=== PATIENT | male | born 1945 | race Caucasian/White ===

== ENCOUNTER 2020-05-24 21:22 | Observation (INO) ==
[2020-05-24 23:42] LABS: Bilirubin,Urine Negative (Negative); Blood, Urine Negative (Negative); Glucose,Urine (UA) 50 mg/dL (Negative); Ketones,Urine Negative (Negative); Mucus,Urine Occasional /LPF (Occasional); Nitrite,Urine Negative (Negative); Protein,Urine 100 MG/DL; RBC,Urine 2 /HPF (0-4); Squamous Epithelial Cell,Urine Occasional /HPF (0-10); Urine Appearance CLEAR (Clear); Urine Color Amber (Yellow); Urine Specific Gravity 1.018 (1.001-1.035); WBC,Urine 1 /HPF (0-6)
[2020-05-24 23:44] LABS: Basophils # 0.1 10*3/uL (0.0-0.2); Basophils % 0.8 % (0.0-0.8); Eosinophils # 0.1 10*3/uL (0.0-0.87); Eosinophils % 0.9 % (0.00-10.9); Hematocrit 29.5 VOL% (42.0-52.0); Hemoglobin 9.2 GM/DL (14.0-18.0); Immature Granulocytes % 0.6 %; Lymphocytes # 3.2 10*3/uL (1.4-4.0); Lymphocytes % 20.5 % (21.2-54.2); Mean Corpuscular HGB Conc 31.2 GM/DL (32-36); Mean Corpuscular Volume 70.2 FL (87-102); Monocytes % 8.9 % (1.7-12.7); NRBC # 6.69 10*3/uL; Neutrophils % 68.3 % (38.7-73.9); Platelet Count 372 T/CUMM (130-400); White Blood Count 15.7 T/CUMM (4-12)
[2020-05-24 23:56] LABS: INR 1.6; PT Patient Result 16.7 SECS (9.8-11.9); Partial Thromboplastin Time 29.4 SECS (23.9-33.8)
[2020-05-25 00:04] LABS: Albumin 3.3 G/DL (3.4-5.0); Bilirubin,Total 2.5 MG/DL (0.2-1.0); Calcium 8.6 MG/DL (8.5-10.1); Osmolality,Calculated 277.8 MOS/KG (273-304); Potassium 4.1 MMOL/L (3.5-5.1); Total Protein 6.5 G/DL (6.4-8.3)
[2020-05-25 02:25] LABS: Anisocytosis 3+; Eosinophils 1 % (0-10); Lymphocytes 22 % (20-55); Nucleated Red Blood Cells 64 (0-5); Poikilocytosis 3+; Segmented Neutrophils 73 % (50-85); Total Cells Counted 100
[2020-05-25 02:26] LABS: Atypical Lymphocytes Few; Hypochromasia Slight; Macrocytosis 1+; Microcytosis 1+; Ovalocytes Few
[2020-05-25 02:27] LABS: Acanthocytes 1+; Burr Cells 1+; Howell-Jolly Bodies Few; Polychromasia Few; Schistocytes 1+; Spherocytes 1+
[2020-05-25 02:28] LABS: Target Cells 1+; Tear Drop Cells 1+
[2020-05-25 02:31] LABS: Basophilic Stippling Slight
[2020-05-25] MEDS ORDERED: GLUCAGON 1 MG VIAL IM PRN (03:31)
[2020-05-25] MEDS ORDERED: DEXTROSE 50% 25 GM/50 ML VIAL IV PRN (03:31)
[2020-05-25] MEDS ORDERED: ACETAMINOPHEN 325 MG TABLET PO PRN (03:37)
[2020-05-25] MEDS ORDERED: BISACODYL 5 MG TABLET PO PRN (03:37)
[2020-05-25] MEDS ORDERED: ONDANSETRON 4 MG/2 ML VIAL IV PRN (03:37)
[2020-05-25 06:28] LABS: Basophils # 0.1 10*3/uL (0.0-0.2); Basophils % 0.7 % (0.0-0.8); Eosinophils # 0.2 10*3/uL (0.0-0.87); Eosinophils % 1.8 % (0.00-10.9); Hematocrit 28.4 VOL% (42.0-52.0); Hemoglobin 8.9 GM/DL (14.0-18.0); Immature Granulocytes % 0.6 %; Immature Granulocytes Absolute 0.08 #; Lymphocytes % 23.9 % (21.2-54.2); Mean Corpuscular HGB Conc 31.3 GM/DL (32-36); Mean Corpuscular Volume 70.6 FL (87-102); Monocytes % 9.7 % (1.7-12.7); NRBC # 6.09 10*3/uL; Neutrophils % 63.3 % (38.7-73.9); Platelet Count 435 T/CUMM (130-400); Red Blood Count 4.02 MC/CUMM (3.8-5.5); Red Cell Distribution Width 26.3 % (9.3-17.3); White Blood Count 12.6 T/CUMM (4-12)
[2020-05-25 06:54] LABS: % Iron Saturation 14.8 % (18-50); Ferritin 138.3 ng/ml (26-388)
[2020-05-25 07:01] LABS: Albumin 3.1 G/DL (3.4-5.0); Bilirubin,Total 1.8 MG/DL (0.2-1.0); Calcium 8.6 MG/DL (8.5-10.1); Osmolality,Calculated 273.8 MOS/KG (273-304); Potassium 3.7 MMOL/L (3.5-5.1); Risk Ratio 2.66; Thyroid Stimulating Hormone 1.18 uIU/ml (0.358-3.74); Total Protein 6.6 G/DL (6.4-8.3); VLDL CHOLESTEROL 16.6 MG/DL
[2020-05-25 07:57] LABS: Band Neutrophils 3 % (0-10); Eosinophils 5 % (0-10); Lymphocytes 25 % (20-55); Nucleated Red Blood Cells 87 (0-5); Platelet Estimate Normal; Segmented Neutrophils 61 % (50-85); Total Cells Counted 100
[2020-05-25 07:58] LABS: Anisocytosis 2+; Burr Cells 1+; Ovalocytes Few; Poikilocytosis 1+; Target Cells 2+
[2020-05-25 07:59] LABS: Hypochromasia Slight; Polychromasia 1+
[2020-05-25] MEDS: INSULIN LISPRO 100 UNIT/ML SUBCUT SCH ×4 (08:36→22:35)
[2020-05-25] MEDS ORDERED: INSULIN GLARGINE SUBCUT SCH (09:00)
[2020-05-25] MEDS: ATORVASTATIN 20 MG TABLET PO SCH (09:49)
[2020-05-25] MEDS: lisinopriL 20 MG TABLET PO SCH (09:49)
[2020-05-25] MEDS: FOLIC ACID 1 MG TABLET PO SCH (09:49)
[2020-05-25] MEDS: MAGNESIUM OXIDE 400 MG TABLET PO SCH (09:49)
[2020-05-25] MEDS: METOPROLOL TARTRATE 25 MG TABLET PO SCH ×2 (09:50→22:34)
[2020-05-25] MEDS: WARFARIN 5 MG TABLET PO SCH (16:54)
[2020-05-26] MEDS: hydrALAZINE 20 MG/1 ML VIAL IV PRN (02:32)
[2020-05-26 05:57] LABS: Basophils # 0.1 10*3/uL (0.0-0.2); Eosinophils # 0.3 10*3/uL (0.0-0.87); Eosinophils % 2.3 % (0.00-10.9); Hematocrit 28.7 VOL% (42.0-52.0); Immature Granulocytes % 0.7 %; Immature Granulocytes Absolute 0.09 #; Lymphocytes # 2.3 10*3/uL (1.4-4.0); Lymphocytes % 18.7 % (21.2-54.2); Mean Corpuscular HGB Conc 31.4 GM/DL (32-36); Mean Corpuscular Volume 70.3 FL (87-102); Monocytes % 10.7 % (1.7-12.7); NRBC # 5.26 10*3/uL; Neutrophils % 66.6 % (38.7-73.9); Platelet Count 362 T/CUMM (130-400); Red Blood Count 4.08 MC/CUMM (3.8-5.5); Red Cell Distribution Width 27.1 % (9.3-17.3); White Blood Count 12.2 T/CUMM (4-12)
[2020-05-26 06:23] LABS: Albumin 3.2 G/DL (3.4-5.0); Bilirubin,Total 1.8 MG/DL (0.2-1.0); Calcium 8.3 MG/DL (8.5-10.1); Osmolality,Calculated 279.4 MOS/KG (273-304); Potassium 3.6 MMOL/L (3.5-5.1); Total Protein 6.7 G/DL (6.4-8.3)
[2020-05-26 07:07] LABS: Anisocytosis 3+; Basophilic Stippling 1+; Burr Cells 1+; Platelet Estimate Normal; Poikilocytosis 1+; Target Cells 1+
[2020-05-26 07:08] LABS: Giant Platelets Few; Ovalocytes Few; Tear Drop Cells Few
[2020-05-26] MEDS: INSULIN LISPRO 100 UNIT/ML SUBCUT SCH ×4 (07:35→21:33)
[2020-05-26] MEDS ORDERED: NITROGLYCERIN SL 0.4 MG TABLET SL ONE (07:53)
[2020-05-26] MEDS: lisinopriL 20 MG TABLET PO SCH (09:39)
[2020-05-26] MEDS: FOLIC ACID 1 MG TABLET PO SCH (09:39)
[2020-05-26] MEDS: METOPROLOL TARTRATE 25 MG TABLET PO SCH ×2 (09:39→21:21)
[2020-05-26] MEDS: MAGNESIUM OXIDE 400 MG TABLET PO SCH (09:39)
[2020-05-26] MEDS: ATORVASTATIN 20 MG TABLET PO SCH (09:40)
[2020-05-26] MEDS ORDERED: NITROGLYCERIN SL 0.4 MG TABLET SL PRN (12:51)
[2020-05-26] MEDS: WARFARIN 5 MG TABLET PO SCH (16:34)
[2020-05-27 05:09] LABS: Basophils # 0.2 10*3/uL (0.0-0.2); Basophils % 1.6 % (0.0-0.8); Eosinophils # 0.3 10*3/uL (0.0-0.87); Eosinophils % 3.1 % (0.00-10.9); Hematocrit 28.7 VOL% (42.0-52.0); Hemoglobin 8.8 GM/DL (14.0-18.0); Immature Granulocytes % 0.5 %; Immature Granulocytes Absolute 0.05 #; Lymphocytes # 2.4 10*3/uL (1.4-4.0); Lymphocytes % 23.8 % (21.2-54.2); Mean Corpuscular HGB Conc 30.7 GM/DL (32-36); Mean Corpuscular Volume 70.5 FL (87-102); Monocytes % 13.8 % (1.7-12.7); NRBC # 5.21 10*3/uL; Neutrophils % 57.2 % (38.7-73.9); Platelet Count 348 T/CUMM (130-400); Red Blood Count 4.07 MC/CUMM (3.8-5.5); Red Cell Distribution Width 27.1 % (9.3-17.3); White Blood Count 9.9 T/CUMM (4-12)
[2020-05-27 05:16] LABS: PT Patient Result 20.3 SECS (9.8-11.9)
[2020-05-27 05:28] LABS: Eosinophils 1 % (0-10); Hypochromasia 1+; Lymphocytes 24 % (20-55); Nucleated Red Blood Cells 73 (0-5); Platelet Estimate Adequate; Segmented Neutrophils 68 % (50-85); Target Cells Few; Total Cells Counted 100
[2020-05-27 05:29] LABS: Basophilic Stippling Slight; Macrocytosis Slight; Pappenheimer Bodies Slight; Polychromasia Slight
[2020-05-27 05:33] LABS: Calcium 8.3 MG/DL (8.5-10.1); Osmolality,Calculated 282.5 MOS/KG (273-304)
[2020-05-27 05:37] LABS: Albumin 3.1 G/DL (3.4-5.0); Bilirubin,Direct 0.45 MG/DL (0.0-0.20); Bilirubin,Total 2.4 MG/DL (0.2-1.0); Total Protein 6.8 G/DL (6.4-8.3)
[2020-05-27] MEDS: INSULIN LISPRO 100 UNIT/ML SUBCUT SCH ×4 (08:16→20:30)
[2020-05-27] MEDS: lisinopriL 20 MG TABLET PO SCH (11:01)
[2020-05-27] MEDS: METOPROLOL TARTRATE 25 MG TABLET PO SCH ×2 (11:01→20:33)
[2020-05-27] MEDS: ATORVASTATIN 20 MG TABLET PO SCH (11:02)
[2020-05-27] MEDS: FOLIC ACID 1 MG TABLET PO SCH (11:02)
[2020-05-27] MEDS: MAGNESIUM OXIDE 400 MG TABLET PO SCH (11:02)
[2020-05-27] MEDS: WARFARIN 5 MG TABLET PO SCH (16:39)
[2020-05-27] MEDS: hydrALAZINE 20 MG/1 ML VIAL IV PRN (16:40)
[2020-05-28 06:17] LABS: Basophils # 0.2 10*3/uL (0.0-0.2); Basophils % 1.7 % (0.0-0.8); Eosinophils # 0.3 10*3/uL (0.0-0.87); Eosinophils % 3.2 % (0.00-10.9); Hematocrit 30.5 VOL% (42.0-52.0); Hemoglobin 9.4 GM/DL (14.0-18.0); Immature Granulocytes % 0.3 %; Immature Granulocytes Absolute 0.03 #; Lymphocytes # 2.5 10*3/uL (1.4-4.0); Lymphocytes % 28.3 % (21.2-54.2); Mean Corpuscular HGB Conc 30.8 GM/DL (32-36); Mean Corpuscular Volume 71.4 FL (87-102); Monocytes % 13.6 % (1.7-12.7); NRBC # 3.29 10*3/uL; Neutrophils % 52.9 % (38.7-73.9); Platelet Count 361 T/CUMM (130-400); Red Blood Count 4.27 MC/CUMM (3.8-5.5); Red Cell Distribution Width 27.7 % (9.3-17.3); White Blood Count 8.8 T/CUMM (4-12)
[2020-05-28 06:37] LABS: Calcium 8.6 MG/DL (8.5-10.1); Potassium 4.4 MMOL/L (3.5-5.1)
[2020-05-28 06:44] LABS: Basophilic Stippling Slight; Eosinophils 4 % (0-10); Howell-Jolly Bodies Slight; Hypochromasia 1+; Lymphocytes 18 % (20-55); Nucleated Red Blood Cells 51 (0-5); Pappenheimer Bodies Few; Platelet Estimate Adequate; Segmented Neutrophils 68 % (50-85); Total Cells Counted 100
[2020-05-28 06:45] LABS: Macrocytosis Slight; Polychromasia Slight
[2020-05-28] MEDS: hydrALAZINE 20 MG/1 ML VIAL IV PRN (08:19)
[2020-05-28] MEDS: INSULIN LISPRO 100 UNIT/ML SUBCUT SCH ×4 (08:20→20:53)
[2020-05-28] MEDS: ATORVASTATIN 20 MG TABLET PO SCH (09:27)
[2020-05-28] MEDS: MAGNESIUM OXIDE 400 MG TABLET PO SCH (09:27)
[2020-05-28] MEDS: FOLIC ACID 1 MG TABLET PO SCH (09:27)
[2020-05-28] MEDS: METOPROLOL TARTRATE 25 MG TABLET PO SCH ×2 (09:27→20:53)
[2020-05-28] MEDS: lisinopriL 20 MG TABLET PO SCH (09:27)
[2020-05-28] MEDS: WARFARIN 5 MG TABLET PO SCH (16:02)
[2020-05-29 05:40] LABS: Basophils # 0.1 10*3/uL (0.0-0.2); Basophils % 1.5 % (0.0-0.8); Eosinophils # 0.3 10*3/uL (0.0-0.87); Eosinophils % 3.4 % (0.00-10.9); Hematocrit 27.2 VOL% (42.0-52.0); Hemoglobin 8.5 GM/DL (14.0-18.0); Immature Granulocytes % 0.4 %; Immature Granulocytes Absolute 0.03 #; Lymphocytes # 2.5 10*3/uL (1.4-4.0); Lymphocytes % 30.6 % (21.2-54.2); Mean Corpuscular HGB Conc 31.3 GM/DL (32-36); Mean Corpuscular Volume 70.3 FL (87-102); Monocytes % 14.7 % (1.7-12.7); Neutrophils % 49.4 % (38.7-73.9); Platelet Count 333 T/CUMM (130-400); Red Blood Count 3.87 MC/CUMM (3.8-5.5); Red Cell Distribution Width 27.2 % (9.3-17.3); White Blood Count 8.2 T/CUMM (4-12)
[2020-05-29 06:01] LABS: Calcium 8.3 MG/DL (8.5-10.1); Osmolality,Calculated 284.5 MOS/KG (273-304); Potassium 4.2 MMOL/L (3.5-5.1)
[2020-05-29 06:35] LABS: Eosinophils 3 % (0-10); Hypochromasia 1+; Lymphocytes 32 % (20-55); Nucleated Red Blood Cells 24 (0-5); Platelet Estimate Adequate; Segmented Neutrophils 53 % (50-85); Target Cells Few; Total Cells Counted 100
[2020-05-29 06:36] LABS: Howell-Jolly Bodies Slight; Pappenheimer Bodies Slight
[2020-05-29 06:37] LABS: Macrocytosis Slight
[2020-05-29] MEDS: INSULIN LISPRO 100 UNIT/ML SUBCUT SCH ×3 (07:58→16:51)
[2020-05-29] MEDS: METOPROLOL TARTRATE 25 MG TABLET PO SCH (09:26)
[2020-05-29] MEDS: FOLIC ACID 1 MG TABLET PO SCH (09:26)
[2020-05-29] MEDS: ATORVASTATIN 20 MG TABLET PO SCH (09:26)
[2020-05-29] MEDS: lisinopriL 20 MG TABLET PO SCH (09:27)
[2020-05-29] MEDS: MAGNESIUM OXIDE 400 MG TABLET PO SCH (09:27)
[2020-05-29] MEDS ORDERED: REGADENOSON 0.4 MG/5 ML SYRINGE IV ONE (13:23)
[2020-05-29 16:51] VITALS: BP 130/70
[2020-06-04 05:32] LABS: Hemoglobin A1 (Alkaline) 91.6 % (96.5-98.5); Hemoglobin A2 (Alkaline) 4.6 % (1.5-3.5); Hemoglobin F (Alkaline) 3.8 %
== END 2020-05-29 17:52 | disposition home or self-care (01) ==
LOC: N.EDINP 21:22 → N.ED 21:22 → SUATTDRO 05-25 01:48 → N.TELES 05-25 04:08
PROVIDERS: ADMIT Internal Medicine; ATTEND Internal Medicine

== ENCOUNTER 2021-01-22 08:29 | Observation (INO) ==
[2021-01-22 09:19] LABS: Basophils # 0.2 10*3/uL (0.0-0.2); Basophils % 1.5 % (0.0-0.8); Eosinophils # 0.3 10*3/uL (0.0-0.87); Hematocrit 29.5 VOL% (42.0-52.0); Hemoglobin 8.9 GM/DL (14.0-18.0); Immature Granulocytes % 0.5 %; Immature Granulocytes Absolute 0.07 #; Lymphocytes # 2.7 10*3/uL (1.4-4.0); Mean Corpuscular HGB Conc 30.2 GM/DL (32-36); Mean Corpuscular Volume 61.1 FL (87-102); Monocytes % 8.6 % (1.7-12.7); NRBC # 3.02 10*3/uL; Neutrophils % 69.4 % (38.7-73.9); Platelet Count 384 T/CUMM (130-400); Red Blood Count 4.83 MC/CUMM (3.8-5.5); White Blood Count 14.9 T/CUMM (4-12)
[2021-01-22 09:34] LABS: Albumin 3.7 G/DL (3.4-5.0); Bilirubin,Total 1.1 MG/DL (0.20-1.00); Calcium 9.1 MG/DL (8.5-10.1); Potassium 4.9 MMOL/L (3.5-5.1); Total Protein 7.3 G/DL (6.4-8.2)
[2021-01-22] MEDS ORDERED: ACETAMINOPHEN 325 MG TABLET PO PRN (10:19)
[2021-01-22] MEDS ORDERED: ONDANSETRON 4 MG/2 ML VIAL IV PRN (10:19)
[2021-01-22] MEDS ORDERED: GLUCAGON 1 MG VIAL IM PRN (10:19)
[2021-01-22] MEDS ORDERED: DEXTROSE 50% 25 GM/50 ML VIAL IV PRN (10:19)
[2021-01-22 10:32] LABS: Lymphocytes 28 % (20-55); Nucleated Red Blood Cells 1 (0-5); Segmented Neutrophils 60 % (50-85); Total Cells Counted 100
[2021-01-22 10:33] LABS: Anisocytosis 1+; Hypochromasia 1+
[2021-01-22 10:51] LABS: Platelet Estimate Adequate
[2021-01-22] MEDS: INSULIN REGULAR 100 UNIT/ML SUBCUT SCH ×3 (12:26→21:34)
[2021-01-22] MEDS: MAGNESIUM OXIDE 400 MG TABLET PO SCH (21:21)
[2021-01-22] MEDS: METOPROLOL TARTRATE 25 MG TABLET PO SCH (21:22)
[2021-01-22] MEDS: DOCUSATE SODIUM 100 MG CAPSULE PO SCH (21:23)
[2021-01-22] MEDS: MEMANTINE 10 MG TABLET PO SCH (21:23)
[2021-01-22] MEDS: APIXABAN 5 MG TABLET PO SCH (21:23)
[2021-01-23 05:07] LABS: Basophils # 0.2 10*3/uL (0.0-0.2); Basophils % 1.8 % (0.0-0.8); Eosinophils # 0.4 10*3/uL (0.0-0.87); Eosinophils % 3.4 % (0.00-10.9); Hematocrit 28.3 VOL% (42.0-52.0); Hemoglobin 8.6 GM/DL (14.0-18.0); Immature Granulocytes % 0.3 %; Immature Granulocytes Absolute 0.04 #; Lymphocytes # 5.1 10*3/uL (1.4-4.0); Lymphocytes % 42.9 % (21.2-54.2); Mean Corpuscular HGB Conc 30.4 GM/DL (32-36); Mean Corpuscular Volume 60.9 FL (87-102); Monocytes % 12.6 % (1.7-12.7); NRBC # 2.22 10*3/uL; Platelet Count 384 T/CUMM (130-400); Red Blood Count 4.65 MC/CUMM (3.8-5.5); Red Cell Distribution Width 22.6 % (9.3-17.3); White Blood Count 11.9 T/CUMM (4-12)
[2021-01-23 05:29] LABS: Osmolality,Calculated 280.4 MOS/KG (273-304); Potassium 3.8 MMOL/L (3.5-5.1)
[2021-01-23 05:42] LABS: Acanthocytes Few; Anisocytosis 1+; Hypochromasia 1+; Platelet Estimate Increased; Schistocytes 2+
[2021-01-23] MEDS: INSULIN REGULAR 100 UNIT/ML SUBCUT SCH ×2 (07:03→11:47)
[2021-01-23] MEDS ORDERED: lisinopriL 20 MG TABLET PO SCH (09:00)
[2021-01-23] MEDS ORDERED: INSULIN GLARGINE 100 UNIT/ML SUBCUT SCH (09:00)
[2021-01-23] MEDS ORDERED: PANTOPRAZOLE 40 MG TABLET PO SCH (09:00)
[2021-01-23] MEDS: METOPROLOL TARTRATE 25 MG TABLET PO SCH (09:23)
[2021-01-23] MEDS: DOCUSATE SODIUM 100 MG CAPSULE PO SCH (09:23)
[2021-01-23] MEDS: APIXABAN 5 MG TABLET PO SCH (09:23)
[2021-01-23] MEDS: MAGNESIUM OXIDE 400 MG TABLET PO SCH (09:24)
[2021-01-23] MEDS: MEMANTINE 10 MG TABLET PO SCH (09:24)
[2021-01-23 11:03] LABS: Bilirubin,Urine Negative (Negative); Blood, Urine Negative (Negative); Glucose,Urine (UA) 50 mg/dL (Negative); Ketones,Urine Negative (Negative); Nitrite,Urine Negative (Negative); Protein,Urine Negative; RBC,Urine 2 /HPF (0-4); Urine Appearance CLEAR (Clear); Urine Color Yellow (Yellow); Urine Specific Gravity 1.014 (1.001-1.035)
[2021-01-23 11:33] VITALS: BP 138/71
[2021-01-23] MEDS ORDERED: ATORVASTATIN 20 MG TABLET PO SCH (21:00)
== END 2021-01-23 15:20 | disposition home or self-care (01) ==
LOC: N.EDINP 08:29 → N.ED 08:29 → N.3E 16:32
PROVIDERS: ADMIT Family Medicine; ATTEND Family Medicine

== ENCOUNTER 2021-06-17 13:13 | Observation (INO) ==
[2021-06-17] MEDS ORDERED: SODIUM CHLORIDE 0.9% 1,000 ML IV PRN (15:25)
[2021-06-17] MEDS ORDERED: ACETAMINOPHEN 500 MG TABLET PO PRN (16:33)
[2021-06-17] MEDS ORDERED: POTASSIUM CHLORIDE 20 MEQ TABLET PO PRN (16:35)
[2021-06-17] MEDS ORDERED: MAGNESIUM SULF RIDER 2 GM/50 ML PREMIX IV PRN (16:35)
[2021-06-17] MEDS ORDERED: GLUCAGON 1 MG VIAL IM PRN (16:35)
[2021-06-17] MEDS ORDERED: POTASSIUM CHLORIDE RIDER 10 MEQ/100 ML PREMIX IV PRN (16:35)
[2021-06-17] MEDS ORDERED: MAGNESIUM SULF RIDER 4 GM/100 ML PREMIX IV PRN (16:35)
[2021-06-17] MEDS ORDERED: DEXTROSE 10% 25 GM/250 ML BAG IV PRN (16:35)
[2021-06-17] MEDS ORDERED: ONDANSETRON 4 MG/2 ML VIAL IV PRN (18:49)
[2021-06-17] MEDS ORDERED: ACETAMINOPHEN 325 MG TABLET PO PRN (18:49)
[2021-06-17 20:11] LABS: Hyaline Casts,Urine 14 /LPF (0-3); Mucus,Urine Occasional /LPF (Occasional); RBC,Urine 4 /HPF (0-4); Squamous Epithelial Cell,Urine Occasional /HPF (0-10)
[2021-06-17 20:12] LABS: Bilirubin,Urine Small mg/dL (Negative); Blood, Urine Negative (Negative); Glucose,Urine (UA) Negative (Negative); Ketones,Urine Trace mg/dL (Negative); Nitrite,Urine Negative (Negative); Protein,Urine 30 MG/DL; Urine Appearance Slightly Cloudy (Clear); Urine Color Amber (Yellow); Urine Specific Gravity 1.025 (1.001-1.035); Urine pH 5.5 (4.5-8.0)
[2021-06-17] MEDS ORDERED: DONEPEZIL 10 MG TABLET PO SCH (21:00)
[2021-06-17] MEDS ORDERED: ENOXAPARIN 40 MG/0.4 ML SYRINGE SUBCUT SCH (21:00)
[2021-06-17] MEDS: INSULIN LISPRO 100 UNIT/ML SUBCUT SCH (21:12)
[2021-06-17] MEDS: METOPROLOL TARTRATE 25 MG TABLET PO SCH (21:17)
[2021-06-17] MEDS: MEMANTINE 10 MG TABLET PO SCH (21:18)
[2021-06-17] MEDS: DOCUSATE SODIUM 100 MG CAPSULE PO SCH (21:18)
[2021-06-18 07:48] LABS: Basophils # 0.2 10*3/uL (0.0-0.2); Basophils % 1.8 % (0.0-0.8); Eosinophils # 0.3 10*3/uL (0.0-0.87); Eosinophils % 2.9 % (0.00-10.9); Hematocrit 29.1 VOL% (42.0-52.0); Hemoglobin 8.6 GM/DL (14.0-18.0); Immature Granulocytes % 0.6 %; Immature Granulocytes Absolute 0.05 #; Lymphocytes # 3.5 10*3/uL (1.4-4.0); Mean Corpuscular HGB Conc 29.6 GM/DL (32-36); Mean Corpuscular Volume 76.8 FL (87-102); Monocytes % 11.4 % (1.7-12.7); NRBC # 11.82 10*3/uL; Neutrophils % 42.3 % (38.7-73.9); Platelet Count 234 T/CUMM (130-400); Red Blood Count 3.79 MC/CUMM (3.8-5.5); Red Cell Distribution Width 28.9 % (9.3-17.3); White Blood Count 8.5 T/CUMM (4-12)
[2021-06-18] MEDS: INSULIN LISPRO 100 UNIT/ML SUBCUT SCH ×2 (07:56→11:55)
[2021-06-18 08:09] LABS: Eosinophils 2 % (0-10); Hypochromia 1+; Lymphocytes 36 % (20-55); Microcytosis 1+; Nucleated Red Blood Cells 156 (0-5); Platelet Estimate Adequate; Segmented Neutrophils 50 % (50-85); Total Cells Counted 100
[2021-06-18 08:13] LABS: Albumin 2.8 G/DL (3.4-5.0); Bilirubin,Total 1.3 MG/DL (0.20-1.00); Calcium 8.6 MG/DL (8.5-10.1); Osmolality,Calculated 277.5 MOS/KG (273-304); Potassium 4.2 MMOL/L (3.5-5.1); Total Protein 7.3 G/DL (6.4-8.2)
[2021-06-18] MEDS: MEMANTINE 10 MG TABLET PO SCH (08:34)
[2021-06-18] MEDS: METOPROLOL TARTRATE 25 MG TABLET PO SCH (08:34)
[2021-06-18] MEDS ORDERED: ATORVASTATIN 20 MG TABLET PO SCH (09:00)
[2021-06-18] MEDS ORDERED: lisinopriL 20 MG TABLET PO SCH (09:00)
[2021-06-18] MEDS ORDERED: INSULIN GLARGINE 100 UNIT/ML SUBCUT SCH (09:00)
[2021-06-18] MEDS ORDERED: PANTOPRAZOLE 40 MG TABLET PO SCH (09:00)
[2021-06-18] MEDS: DOCUSATE SODIUM 100 MG CAPSULE PO SCH (11:05)
[2021-06-18 12:13] VITALS: BP 153/82
== END 2021-06-18 14:46 | disposition home health service (06) ==
LOC: N.ED 13:13 → N.EDINP 13:13 → N.3E 18:33
PROVIDERS: ADMIT Family Medicine; ATTEND Family Medicine

== ENCOUNTER 2021-09-10 12:19 | Observation (INO) ==
[2021-09-10] MEDS ORDERED: ACETAMINOPHEN 325 MG TABLET PO PRN (13:55)
[2021-09-10] MEDS ORDERED: GLUCAGON 1 MG VIAL IM PRN ×2 (13:55)
[2021-09-10] MEDS ORDERED: ONDANSETRON 4 MG/2 ML VIAL IV PRN (13:55)
[2021-09-10] MEDS ORDERED: DEXTROSE 50% 25 GM/50 ML VIAL IV PRN (13:55)
[2021-09-10] MEDS ORDERED: MAGNESIUM SULF RIDER 2 GM/50 ML PREMIX IV PRN (13:55)
[2021-09-10] MEDS ORDERED: POTASSIUM CHLORIDE RIDER 10 MEQ/100 ML PREMIX IV PRN (13:55)
[2021-09-10] MEDS ORDERED: MAGNESIUM SULF RIDER 4 GM/100 ML PREMIX IV PRN (13:55)
[2021-09-10] MEDS ORDERED: DEXTROSE 10% 250 ML BAG IV PRN (13:55)
[2021-09-10] MEDS ORDERED: SODIUM CHLORIDE 0.9% 1,000 ML IV PRN (13:58)
[2021-09-10 15:31] LABS: Basophils # 0.2 10*3/uL (0.0-0.2); Basophils % 1.4 % (0.0-0.8); Eosinophils # 0.4 10*3/uL (0.0-0.87); Eosinophils % 3.2 % (0.00-10.9); Immature Granulocytes % 0.6 %; Immature Granulocytes Absolute 0.07 #; Lymphocytes # 4.7 10*3/uL (1.4-4.0); Lymphocytes % 41.9 % (21.2-54.2); Mean Corpuscular HGB Conc 30.8 GM/DL (32-36); Mean Corpuscular Volume 64.5 FL (87-102); Monocytes % 9.2 % (1.7-12.7); NRBC # 4.49 10*3/uL; Neutrophils % 43.7 % (38.7-73.9); Platelet Count 392 T/CUMM (130-400); Red Blood Count 4.03 MC/CUMM (3.8-5.5); Red Cell Distribution Width 26.1 % (9.3-17.3); White Blood Count 11.1 T/CUMM (4-12)
[2021-09-10 15:46] LABS: Calcium 8.7 MG/DL (8.5-10.1); Osmolality,Calculated 283.8 MOS/KG (273-304); Potassium 4.1 MMOL/L (3.5-5.1)
[2021-09-10 16:41] LABS: Eosinophils 1 % (0-10); Lymphocytes 45 % (20-55); Nucleated Red Blood Cells 99 (0-5); Total Cells Counted 100
[2021-09-10 16:42] LABS: Anisocytosis 1+; Hypochromia 2+
[2021-09-10 16:43] LABS: Microcytosis 1+; Polychromasia 1+; Schistocytes 1+; Target Cells 1+
[2021-09-10 16:45] LABS: Macrocytosis 1+; Poikilocytosis 1+
[2021-09-10 16:46] LABS: Basophilic Stippling 1+
[2021-09-10 16:48] LABS: Pappenheimer Bodies 2+; Platelet Estimate Adequate
[2021-09-10] MEDS: INSULIN REGULAR 100 UNIT/ML SUBCUT SCH ×2 (17:20→21:59)
[2021-09-10] MEDS: PANTOPRAZOLE 40 MG TABLET PO SCH (17:20)
[2021-09-10] MEDS: DOCUSATE SODIUM 100 MG CAPSULE PO SCH (21:58)
[2021-09-11 05:33] LABS: Basophils # 0.2 10*3/uL (0.0-0.2); Basophils % 1.4 % (0.0-0.8); Eosinophils # 0.3 10*3/uL (0.0-0.87); Eosinophils % 3.1 % (0.00-10.9); Hematocrit 23.3 VOL% (42.0-52.0); Hemoglobin 7.2 GM/DL (14.0-18.0); Immature Granulocytes % 0.5 %; Immature Granulocytes Absolute 0.05 #; Lymphocytes # 4.6 10*3/uL (1.4-4.0); Mean Corpuscular HGB Conc 30.9 GM/DL (32-36); Mean Corpuscular Volume 64.4 FL (87-102); Monocytes # 1.4 10*3/uL (0.11-0.8); Monocytes % 13.3 % (1.7-12.7); NRBC # 4.45 10*3/uL; Neutrophils % 37.7 % (38.7-73.9); Platelet Count 356 T/CUMM (130-400); Red Blood Count 3.62 MC/CUMM (3.8-5.5); Red Cell Distribution Width 25.2 % (9.3-17.3); White Blood Count 10.4 T/CUMM (4-12)
[2021-09-11 05:46] LABS: Calcium 8.9 MG/DL (8.5-10.1); Osmolality,Calculated 276.4 MOS/KG (273-304); Potassium 3.6 MMOL/L (3.5-5.1)
[2021-09-11 05:55] LABS: Eosinophils 5 % (0-10); Lymphocytes 41 % (20-55); Nucleated Red Blood Cells 61 (0-5); Polychromasia Few; Total Cells Counted 100
[2021-09-11 05:56] LABS: Acanthocytes Few; Anisocytosis 1+; Hypochromia 1+; Microcytosis 1+; Target Cells 1+
[2021-09-11 05:57] LABS: Howell-Jolly Bodies Slight; Pappenheimer Bodies 1+
[2021-09-11 05:58] LABS: Ovalocytes Slight
[2021-09-11 05:59] LABS: Platelet Estimate Normal
[2021-09-11] MEDS: INSULIN REGULAR 100 UNIT/ML SUBCUT SCH ×4 (07:33→22:19)
[2021-09-11] MEDS: METOPROLOL TARTRATE 25 MG TABLET PO SCH ×2 (09:29→22:18)
[2021-09-11] MEDS: PANTOPRAZOLE 40 MG TABLET PO SCH (09:30)
[2021-09-11] MEDS: DOCUSATE SODIUM 100 MG CAPSULE PO SCH ×2 (09:30→22:19)
[2021-09-11] MEDS: lisinopriL 20 MG TABLET PO SCH (09:30)
[2021-09-11] MEDS: ATORVASTATIN 20 MG TABLET PO SCH (09:30)
[2021-09-11 12:32] LABS: Ferritin 378.7 ng/mL (26-388)
[2021-09-11 18:58] LABS: Hematocrit 24.7 VOL% (42.0-52.0); Hemoglobin 7.8 GM/DL (14.0-18.0)
[2021-09-11 20:48] LABS: Bilirubin,Urine Negative (Negative); Blood, Urine Negative (Negative); Glucose,Urine (UA) 500 mg/dL (Negative); Ketones,Urine Negative (Negative); Mucus,Urine Occasional /LPF (Occasional); Nitrite,Urine Negative (Negative); Protein,Urine Trace mg/dL (Negative); Urine Appearance Clear (Clear); Urine Color Yellow (Yellow); Urine Specific Gravity 1.025 (1.001-1.035); Urine pH 5.5 (4.5-8.0)
[2021-09-12 05:43] LABS: Basophils # 0.2 10*3/uL (0.0-0.2); Basophils % 1.5 % (0.0-0.8); Eosinophils # 0.4 10*3/uL (0.0-0.87); Eosinophils % 3.9 % (0.00-10.9); Hematocrit 25.7 VOL% (42.0-52.0); Hemoglobin 7.9 GM/DL (14.0-18.0); Immature Granulocytes % 0.5 %; Immature Granulocytes Absolute 0.05 #; Lymphocytes # 4.3 10*3/uL (1.4-4.0); Mean Corpuscular HGB Conc 30.7 GM/DL (32-36); Mean Corpuscular Volume 66.4 FL (87-102); Monocytes # 1.4 10*3/uL (0.11-0.8); Monocytes % 14.4 % (1.7-12.7); NRBC # 4.45 10*3/uL; Neutrophils % 36.7 % (38.7-73.9); Platelet Count 325 T/CUMM (130-400); Red Blood Count 3.87 MC/CUMM (3.8-5.5); Red Cell Distribution Width 27.8 % (9.3-17.3); White Blood Count 9.9 T/CUMM (4-12)
[2021-09-12 06:02] LABS: Calcium 8.5 MG/DL (8.5-10.1); Osmolality,Calculated 279.7 MOS/KG (273-304); Potassium 4.2 MMOL/L (3.5-5.1)
[2021-09-12 06:15] LABS: Hypochromia 2+; Lymphocytes 50 % (20-55); Nucleated Red Blood Cells 57 (0-5); Total Cells Counted 100
[2021-09-12 06:16] LABS: Acanthocytes Few; Anisocytosis 1+; Microcytosis 1+; Target Cells 1+
[2021-09-12 06:17] LABS: Basophilic Stippling Slight; Pappenheimer Bodies Few
[2021-09-12 06:18] LABS: Ovalocytes Slight; Platelet Estimate Normal
[2021-09-12] MEDS: METOPROLOL TARTRATE 25 MG TABLET PO SCH (09:10)
[2021-09-12] MEDS: PANTOPRAZOLE 40 MG TABLET PO SCH (09:10)
[2021-09-12] MEDS: lisinopriL 20 MG TABLET PO SCH (09:10)
[2021-09-12] MEDS: DOCUSATE SODIUM 100 MG CAPSULE PO SCH (09:10)
[2021-09-12] MEDS: ATORVASTATIN 20 MG TABLET PO SCH (09:10)
[2021-09-12] MEDS: INSULIN REGULAR 100 UNIT/ML SUBCUT SCH ×2 (09:11→12:14)
[2021-09-12 11:27] VITALS: BP 151/69
[2021-09-12] MEDS ORDERED: lisinopriL 20 MG TABLET PO SCH (21:00)
== END 2021-09-12 13:03 | disposition home or self-care (01) ==
LOC: N.3E
PROVIDERS: ADMIT Family Medicine; ATTEND Family Medicine

== ENCOUNTER 2021-11-15 18:25 | Observation (INO) ==
[2021-11-15] MEDS ORDERED: SODIUM CHLORIDE 0.9% 1,000 ML IV STA (18:59)
[2021-11-15 19:43] LABS: Arterial Base Excess iSTAT 4 MMOL/L (-2.5-2.5); Arterial Bicarbonate iSTAT 29.8 MMOL/L (20-26); Arterial O2 Saturation iSTAT 97 % (95-100); Arterial PCO2 iSTAT 48 MM HG (35-48); Arterial PO2 iSTAT 94 MM HG (80-95); Arterial Total CO2 iSTAT 31 MMO/L (23-27); Arterial pH iSTAT 7.403 (7.35-7.45)
[2021-11-15 19:45] LABS: Basophils # 0.2 10*3/uL (0.0-0.2); Basophils % 1.6 % (0.0-0.8); Eosinophils # 0.4 10*3/uL (0.0-0.87); Hematocrit 23.4 VOL% (42.0-52.0); Hemoglobin 7.3 GM/DL (14.0-18.0); Immature Granulocytes % 0.5 %; Immature Granulocytes Absolute 0.05 #; Lymphocytes # 3.6 10*3/uL (1.4-4.0); Lymphocytes % 33.2 % (21.2-54.2); Mean Corpuscular HGB Conc 31.2 GM/DL (32-36); Mean Corpuscular Volume 62.9 FL (87-102); Monocytes # 1.3 10*3/uL (0.11-0.8); Monocytes % 11.7 % (1.7-12.7); NRBC # 3.83 10*3/uL; Platelet Count 423 T/CUMM (130-400); Red Blood Count 3.72 MC/CUMM (3.8-5.5); Red Cell Distribution Width 23.8 % (9.3-17.3); White Blood Count 10.9 T/CUMM (4-12)
[2021-11-15 19:55] LABS: PT Patient Result 10.7 SECS (10.1-12.1)
[2021-11-15 20:03] LABS: Albumin 2.9 G/DL (3.4-5.0); Bilirubin,Total 0.7 MG/DL (0.20-1.00); Calcium 8.6 MG/DL (8.5-10.1); Osmolality,Calculated 291.4 MOS/KG (273-304); Potassium 4.4 MMOL/L (3.5-5.1); Total Protein 6.7 G/DL (6.4-8.2)
[2021-11-15 20:12] LABS: Eosinophils 6 % (0-10); Lymphocytes 28 % (20-55); Nucleated Red Blood Cells 40 (0-5); Target Cells 1+; Total Cells Counted 100
[2021-11-15 20:13] LABS: Platelet Estimate Normal; Polychromasia Slight
[2021-11-15 20:15] LABS: Anisocytosis 1+; Microcytosis 1+
[2021-11-15 20:16] LABS: Basophilic Stippling Few
[2021-11-15 20:18] LABS: Hypochromia 1+; Poikilocytosis 1+; Schistocytes 1+
[2021-11-15] MEDS ORDERED: SODIUM CHLORIDE 0.9% 1,000 ML IV PRN (20:28)
[2021-11-15 20:41] LABS: Protein,Urine 30 mg/dL (Negative); Urine Appearance Clear (Clear); Urine Color Yellow (Yellow); Urine Specific Gravity >= 1.030 (1.001-1.035)
[2021-11-15 20:42] LABS: Bilirubin,Urine Negative (Negative); Blood, Urine Negative (Negative); Glucose,Urine (UA) 500 mg/dL (Negative); Ketones,Urine Negative (Negative); Nitrite,Urine Negative (Negative); Urine Urobilinogen 0.2 eU/dL (<2.0)
[2021-11-15 20:43] LABS: Hyaline Casts,Urine 4 /LPF (0-3); Mucus,Urine Occasional /LPF (Occasional); RBC,Urine <1 /HPF (0-4)
[2021-11-16] MEDS ORDERED: ONDANSETRON 4 MG/2 ML VIAL IV PRN (00:26)
[2021-11-16] MEDS ORDERED: ACETAMINOPHEN 325 MG TABLET PO PRN (00:26)
[2021-11-16] MEDS ORDERED: FUROSEMIDE 20 MG/2 ML VIAL IV ONE (00:44)
[2021-11-16] MEDS: metFORMIN 500 MG TABLET PO SCH ×2 (04:15→10:42)
[2021-11-16] MEDS: MAGNESIUM OXIDE 400 MG TABLET PO SCH ×2 (04:15→10:42)
[2021-11-16] MEDS: MEMANTINE 10 MG TABLET PO SCH ×2 (04:16→10:42)
[2021-11-16] MEDS ORDERED: ATORVASTATIN 40 MG TABLET PO SCH (09:00)
[2021-11-16] MEDS ORDERED: INSULIN GLARGINE 100 UNIT/ML SUBCUT SCH (09:00)
[2021-11-16] MEDS ORDERED: PANTOPRAZOLE 40 MG TABLET PO SCH (09:00)
[2021-11-16] MEDS ORDERED: lisinopriL 20 MG TABLET PO SCH (09:00)
[2021-11-16 11:03] LABS: Basophils # 0.2 10*3/uL (0.0-0.2); Basophils % 1.5 % (0.0-0.8); Eosinophils # 0.4 10*3/uL (0.0-0.87); Eosinophils % 3.6 % (0.00-10.9); Hematocrit 28.6 VOL% (42.0-52.0); Immature Granulocytes % 0.3 %; Immature Granulocytes Absolute 0.03 #; Lymphocytes # 3.4 10*3/uL (1.4-4.0); Lymphocytes % 31.8 % (21.2-54.2); Mean Corpuscular HGB Conc 32.2 GM/DL (32-36); Mean Corpuscular Volume 66.1 FL (87-102); Monocytes # 1.3 10*3/uL (0.11-0.8); Monocytes % 11.9 % (1.7-12.7); NRBC # 2.29 10*3/uL; Neutrophils % 50.9 % (38.7-73.9); Platelet Count 383 T/CUMM (130-400); Red Blood Count 4.33 MC/CUMM (3.8-5.5); Red Cell Distribution Width 26.8 % (9.3-17.3); White Blood Count 10.7 T/CUMM (4-12)
[2021-11-16 11:04] LABS: Hemoglobin 9.2 GM/DL (14.0-18.0)
[2021-11-16 11:20] LABS: Albumin 2.8 G/DL (3.4-5.0); Calcium 8.7 MG/DL (8.5-10.1); Osmolality,Calculated 287.4 MOS/KG (273-304); Potassium 3.9 MMOL/L (3.5-5.1); Total Protein 7.1 G/DL (6.4-8.2)
[2021-11-16 11:24] LABS: Eosinophils 10 % (0-10); Hypochromia 1+; Lymphocytes 27 % (20-55); Microcytosis 1+; Nucleated Red Blood Cells 24 (0-5); Total Cells Counted 100
[2021-11-16 11:26] LABS: Basophilic Stippling Slight; Pappenheimer Bodies Slight; Polychromasia Slight
[2021-11-16 11:27] LABS: Acanthocytes Few; Platelet Estimate Normal
[2021-11-16 11:28] LABS: Target Cells Few
[2021-11-16 12:24] VITALS: BP 155/59
== END 2021-11-16 16:24 | disposition home or self-care (01) ==
LOC: EDBD → EDUNIT# → N.EDINP 18:25 → N.ED 18:25 → N.EDINP 21:10 → N.TELEN 11-16 00:25
PROVIDERS: ADMIT Family Medicine; ATTEND Family Medicine

== ENCOUNTER 2021-12-06 12:00 | Inpatient (IN) ==
[2021-12-06 12:38] LABS: Basophils # 0.2 10*3/uL (0.0-0.2); Basophils % 1.1 % (0.0-0.8); Eosinophils # 0.1 10*3/uL (0.0-0.87); Eosinophils % 0.6 % (0.00-10.9); Hematocrit 28.3 VOL% (42.0-52.0); Hemoglobin 8.9 GM/DL (14.0-18.0); Immature Granulocytes % 0.6 %; Immature Granulocytes Absolute 0.11 #; Lymphocytes # 2.6 10*3/uL (1.4-4.0); Lymphocytes % 14.4 % (21.2-54.2); Mean Corpuscular HGB Conc 31.4 GM/DL (32-36); Mean Corpuscular Volume 66.1 FL (87-102); Monocytes # 1.9 10*3/uL (0.11-0.8); Monocytes % 10.4 % (1.7-12.7); NRBC # 1.62 10*3/uL; Neutrophils % 72.9 % (38.7-73.9); Platelet Count 345 T/CUMM (130-400); Red Blood Count 4.28 MC/CUMM (3.8-5.5); Red Cell Distribution Width 29.4 % (9.3-17.3)
[2021-12-06 13:02] LABS: Lymphocytes 14 % (20-55); Nucleated Red Blood Cells 24 /100 WBC (0-5)
[2021-12-06 13:03] LABS: Anisocytosis 1+; Target Cells 1+
[2021-12-06 13:04] LABS: Acanthocytes Few; Bilirubin,Total 1.3 MG/DL (0.20-1.00); Calcium 9.1 MG/DL (8.5-10.1); Osmolality,Calculated 286.7 MOS/KG (273-304); Pappenheimer Bodies 1+; Potassium 4.5 MMOL/L (3.5-5.1); Tear Drop Cells Few; Total Protein 7.3 G/DL (6.4-8.2)
[2021-12-06 13:05] LABS: Platelet Estimate Increased; Polychromasia Slight
[2021-12-06 13:06] LABS: Burr Cells Few; Microcytosis 1+
[2021-12-06 13:07] LABS: Basophilic Stippling Few
[2021-12-06 13:08] LABS: Total Cells Counted 100
[2021-12-06] MEDS ORDERED: SODIUM CHLORIDE 0.9% 1,000 ML IV STA (13:25)
[2021-12-06 13:45] LABS: Hyaline Casts,Urine 7 /LPF (0-3); Mucus,Urine Few /LPF (Occasional); RBC,Urine 4 /HPF (0-4); Squamous Epithelial Cell,Urine Occasional /HPF (0-10)
[2021-12-06 13:48] LABS: Glucose,Urine (UA) 250 mg/dL (Negative); Ketones,Urine Trace mg/dL (Negative); Nitrite,Urine Negative (Negative); Protein,Urine >=300 mg/dL (Negative); Urine Appearance Clear (Clear); Urine Color Yellow (Yellow); Urine Specific Gravity 1.025 (1.001-1.035); Urine pH 6.5 (4.5-8.0)
[2021-12-06 13:49] LABS: Bilirubin,Urine Small mg/dL (Negative); Blood, Urine Trace mg/dL (Negative)
[2021-12-06] MEDS ORDERED: cefTRIAXone 1,000 MG in SODIUM CHLORIDE 0.9% 100 ML IV STA (14:07)
[2021-12-06] MEDS ORDERED: ONDANSETRON 4 MG/2 ML VIAL IV PRN (14:36)
[2021-12-06] MEDS ORDERED: ACETAMINOPHEN 325 MG TABLET PO PRN (14:36)
[2021-12-06] MEDS ORDERED: GLUCAGON 1 MG VIAL IM PRN (14:42)
[2021-12-06] MEDS ORDERED: DEXTROSE 10% 250 ML BAG IV PRN (15:00)
[2021-12-06] MEDS: SODIUM CHLORIDE 0.9% 1,000 ML IV SCH (17:05)
[2021-12-06] MEDS: INSULIN LISPRO 100 UNIT/ML SUBCUT SCH (17:14)
[2021-12-06] MEDS ORDERED: DICLOFENAC 1% GEL 100 GM TUBE TOP PRN (18:39)
[2021-12-06] MEDS ORDERED: ENOXAPARIN 40 MG/0.4 ML SYRINGE SUBCUT SCH (21:00)
[2021-12-06] MEDS: DONEPEZIL 10 MG TABLET PO SCH (21:25)
[2021-12-06] MEDS: DOCUSATE SODIUM 100 MG CAPSULE PO SCH (21:25)
[2021-12-06] MEDS: MEMANTINE 10 MG TABLET PO SCH (21:26)
[2021-12-06] MEDS: METOPROLOL TARTRATE 50 MG TABLET PO SCH (21:26)
[2021-12-07] MEDS: SODIUM CHLORIDE 0.9% 1,000 ML IV SCH ×3 (02:36→14:36)
[2021-12-07 06:32] LABS: Basophils # 0.2 10*3/uL (0.0-0.2); Basophils % 1.2 % (0.0-0.8); Eosinophils # 0.4 10*3/uL (0.0-0.87); Eosinophils % 2.6 % (0.00-10.9); Hematocrit 23.3 VOL% (42.0-52.0); Hemoglobin 7.3 GM/DL (14.0-18.0); Immature Granulocytes % 0.4 %; Immature Granulocytes Absolute 0.06 #; Lymphocytes # 3.4 10*3/uL (1.4-4.0); Lymphocytes % 24.9 % (21.2-54.2); Mean Corpuscular HGB Conc 31.3 GM/DL (32-36); Mean Corpuscular Volume 65.8 FL (87-102); Monocytes # 1.6 10*3/uL (0.11-0.8); NRBC # 1.07 10*3/uL; Neutrophils % 58.9 % (38.7-73.9); Platelet Count 291 T/CUMM (130-400); Red Blood Count 3.54 MC/CUMM (3.8-5.5); Red Cell Distribution Width 29.1 % (9.3-17.3); White Blood Count 13.6 T/CUMM (4-12)
[2021-12-07 06:48] LABS: Calcium 8.3 MG/DL (8.5-10.1); Osmolality,Calculated 290.4 MOS/KG (273-304); Potassium 4.2 MMOL/L (3.5-5.1)
[2021-12-07 07:12] LABS: Anisocytosis 1+; Basophilic Stippling 1+; Burr Cells 1+; Platelet Estimate Normal; Poikilocytosis 1+
[2021-12-07 07:13] LABS: Acanthocytes Few; Target Cells 2+; Tear Drop Cells Few
[2021-12-07] MEDS ORDERED: lisinopriL 20 MG TABLET PO SCH ×2 (09:00)
[2021-12-07] MEDS ORDERED: NON-FORMULARY MEDICATION (Insulin Glargine [Basaglar Kwikpen U-100 Insulin] 100 unit/mL (3 SUBCUT SCH (09:00)
[2021-12-07] MEDS: INSULIN GLARGINE 100 UNIT/ML SUBCUT SCH (09:16)
[2021-12-07] MEDS: ATORVASTATIN 40 MG TABLET PO SCH (09:17)
[2021-12-07] MEDS: PANTOPRAZOLE 40 MG TABLET PO SCH (09:17)
[2021-12-07] MEDS: MEMANTINE 10 MG TABLET PO SCH ×2 (09:17→21:53)
[2021-12-07] MEDS: ASPIRIN EC 81 MG TABLET PO SCH (09:17)
[2021-12-07] MEDS: MULTIVITAMIN (CENTRUM) TABLET PO SCH (09:17)
[2021-12-07] MEDS: METOPROLOL TARTRATE 50 MG TABLET PO SCH ×2 (09:17→21:54)
[2021-12-07] MEDS: DOCUSATE SODIUM 100 MG CAPSULE PO SCH ×2 (09:18→21:53)
[2021-12-07] MEDS: INSULIN LISPRO 100 UNIT/ML SUBCUT SCH ×2 (09:31→17:08)
[2021-12-07] MEDS: cefTRIAXone 1,000 MG in SODIUM CHLORIDE 0.9% 100 ML IV SCH (14:37)
[2021-12-07] MEDS: DONEPEZIL 10 MG TABLET PO SCH (21:54)
[2021-12-08] MEDS: SODIUM CHLORIDE 0.9% 1,000 ML IV SCH (02:55)
[2021-12-08 08:53] LABS: Basophils # 0.2 10*3/uL (0.0-0.2); Basophils % 1.3 % (0.0-0.8); Eosinophils # 0.4 10*3/uL (0.0-0.87); Eosinophils % 3.5 % (0.00-10.9); Hematocrit 22.4 VOL% (42.0-52.0); Hemoglobin 7.1 GM/DL (14.0-18.0); Immature Granulocytes % 0.7 %; Immature Granulocytes Absolute 0.08 #; Lymphocytes # 2.5 10*3/uL (1.4-4.0); Lymphocytes % 20.4 % (21.2-54.2); Mean Corpuscular HGB Conc 31.7 GM/DL (32-36); Mean Corpuscular Volume 65.3 FL (87-102); Monocytes # 1.3 10*3/uL (0.11-0.8); Monocytes % 10.7 % (1.7-12.7); NRBC # 0.56 10*3/uL; Neutrophils % 63.4 % (38.7-73.9); Platelet Count 295 T/CUMM (130-400); Red Blood Count 3.43 MC/CUMM (3.8-5.5); Red Cell Distribution Width 28.9 % (9.3-17.3); White Blood Count 12.2 T/CUMM (4-12)
[2021-12-08 09:09] LABS: Platelet Estimate Adequate; Target Cells Slight
[2021-12-08 09:10] LABS: Basophilic Stippling Few; Hypochromia 1+; Microcytosis 1+; Pappenheimer Bodies Slight
[2021-12-08 09:12] LABS: Albumin 2.2 G/DL (3.4-5.0); Bilirubin,Total 0.8 MG/DL (0.20-1.00); Calcium 8.1 MG/DL (8.5-10.1); Osmolality,Calculated 287.5 MOS/KG (273-304); Potassium 3.9 MMOL/L (3.5-5.1); Total Protein 6.3 G/DL (6.4-8.2)
[2021-12-08] MEDS: MULTIVITAMIN (CENTRUM) TABLET PO SCH (09:28)
[2021-12-08] MEDS: INSULIN LISPRO 100 UNIT/ML SUBCUT SCH ×2 (09:28→16:13)
[2021-12-08] MEDS: ASPIRIN EC 81 MG TABLET PO SCH (09:28)
[2021-12-08] MEDS: DOCUSATE SODIUM 100 MG CAPSULE PO SCH ×2 (09:28→21:56)
[2021-12-08] MEDS: INSULIN GLARGINE 100 UNIT/ML SUBCUT SCH (09:28)
[2021-12-08] MEDS: MEMANTINE 10 MG TABLET PO SCH ×2 (09:29→21:56)
[2021-12-08] MEDS: ATORVASTATIN 40 MG TABLET PO SCH (09:29)
[2021-12-08] MEDS: METOPROLOL TARTRATE 50 MG TABLET PO SCH ×2 (09:29→21:56)
[2021-12-08] MEDS: PANTOPRAZOLE 40 MG TABLET PO SCH (09:29)
[2021-12-08] MEDS: lisinopriL 20 MG TABLET PO SCH (09:29)
[2021-12-08] MEDS ORDERED: SODIUM CHLORIDE 0.9% 1,000 ML IV PRN (15:56)
[2021-12-08] MEDS: cefTRIAXone 1,000 MG in SODIUM CHLORIDE 0.9% 100 ML IV SCH (16:35)
[2021-12-08] MEDS: MAGNESIUM OXIDE 400 MG TABLET PO SCH (21:56)
[2021-12-08] MEDS: DONEPEZIL 10 MG TABLET PO SCH (21:56)
[2021-12-09 05:56] LABS: Basophils # 0.1 10*3/uL (0.0-0.2); Eosinophils # 0.5 10*3/uL (0.0-0.87); Eosinophils % 3.4 % (0.00-10.9); Hematocrit 28.5 VOL% (42.0-52.0); Hemoglobin 9.1 GM/DL (14.0-18.0); Immature Granulocytes % 0.4 %; Immature Granulocytes Absolute 0.06 #; Lymphocytes # 3.3 10*3/uL (1.4-4.0); Lymphocytes % 24.7 % (21.2-54.2); Mean Corpuscular HGB Conc 31.9 GM/DL (32-36); Mean Corpuscular Volume 69.7 FL (87-102); Monocytes # 1.6 10*3/uL (0.11-0.8); Monocytes % 11.9 % (1.7-12.7); NRBC # 0.75 10*3/uL; Neutrophils % 58.6 % (38.7-73.9); Platelet Count 283 T/CUMM (130-400); Red Blood Count 4.09 MC/CUMM (3.8-5.5); White Blood Count 13.3 T/CUMM (4-12)
[2021-12-09 06:24] LABS: Albumin 2.4 G/DL (3.4-5.0); Bilirubin,Total 1.1 MG/DL (0.20-1.00); Calcium 8.6 MG/DL (8.5-10.1); Potassium 3.7 MMOL/L (3.5-5.1); Total Protein 6.7 G/DL (6.4-8.2)
[2021-12-09] MEDS: MAGNESIUM OXIDE 400 MG TABLET PO SCH (08:46)
[2021-12-09] MEDS: ASPIRIN EC 81 MG TABLET PO SCH (08:46)
[2021-12-09] MEDS: lisinopriL 20 MG TABLET PO SCH (08:46)
[2021-12-09] MEDS: METOPROLOL TARTRATE 50 MG TABLET PO SCH (08:46)
[2021-12-09] MEDS: MULTIVITAMIN (CENTRUM) TABLET PO SCH (08:46)
[2021-12-09] MEDS: ATORVASTATIN 40 MG TABLET PO SCH (08:46)
[2021-12-09] MEDS: DOCUSATE SODIUM 100 MG CAPSULE PO SCH (08:47)
[2021-12-09] MEDS: INSULIN GLARGINE 100 UNIT/ML SUBCUT SCH (08:47)
[2021-12-09] MEDS: MEMANTINE 10 MG TABLET PO SCH (08:47)
[2021-12-09] MEDS: PANTOPRAZOLE 40 MG TABLET PO SCH (08:48)
[2021-12-09] MEDS: INSULIN LISPRO 100 UNIT/ML SUBCUT SCH (10:14)
[2021-12-09 12:26] VITALS: BP 173/78
[2021-12-09] MEDS: cefTRIAXone 1,000 MG in SODIUM CHLORIDE 0.9% 100 ML IV SCH (16:16)
== END 2021-12-09 16:15 | disposition home health service (06) | DRG 868 ==
LOC: N.ED 12:00 → N.EDINP 14:36 → N.3E 15:36
PROVIDERS: ADMIT Family Medicine; ATTEND Family Medicine